=== PATIENT | female | born 1930 | race Caucasian/White ===

== ENCOUNTER 2017-01-14 13:10 | Outpatient (CLI) | payer MEDICARE, BC, OTHER ==
--- NOTE | 2017-01-14 15:13 | RAD ---
PA AND LATERAL CHEST: Indication: History of dyspnea. Comparison: 11-07-12, single view of the chest dated 04-25-16. FINDINGS: Cardiomegaly and dual-lead pacemaker is unchanged. Chronic lung changes appear similar. Compression a bnormality at L2 and T12 are similar appearing. IMPRESSION: No acute cardiopulmonary abnormality. POS: [facility]
== END 2017-01-14 13:11 | disposition home or self-care (01) ==
LOC: RAD 13:10
PROVIDERS: ATTEND Internal Medicine Pulmonary Disease
DX: R06.00 Dyspnea, unspecified (principal)
CPT/HCPCS: 71020

== ENCOUNTER 2017-05-03 13:11 | Outpatient (CLI) | payer MEDICARE, BC, OTHER ==
--- NOTE | 2017-05-03 16:06 | RAD ---
CHEST TWO VIEWS: HISTORY: Dyspnea. COMPARISON: Chest, two views, 01/14/2017. FINDINGS: The heart size is mildly enlarged. No focal air space consolidation, pneumothorax, or effusion. Chr onic elevation of the left hemidiaphragm, mild. Dual-lead pacer is similar. IMPRESSION: No acute intrathoracic abnormality. No significant change. POS: [facility]
== END 2017-05-03 13:12 | disposition home or self-care (01) ==
LOC: RAD 13:11
PROVIDERS: ATTEND Internal Medicine Pulmonary Disease
DX: R06.00 Dyspnea, unspecified (principal)
CPT/HCPCS: 71046

== ENCOUNTER 2017-06-12 19:45 | Emergency (ER) | payer MEDICARE, BC, OTHER | END 2017-06-12 20:24 | disposition home or self-care (01) | LOC: SCSER 19:45 | DX: I80.3 Phlebitis and thrombophlebitis of lower extremities, unspecified (principal); I10 Essential (primary) hypertension; E03.9 Hypothyroidism, unspecified; J44.9 Chronic obstructive pulmonary disease, unspecified; M81.0 Age-related osteoporosis without current pathological fracture; Z79.899 Other long term (current) drug therapy | CPT/HCPCS: 99283 ==

== ENCOUNTER 2017-08-27 08:36 | Outpatient (CLI) | payer MEDICARE, BC, OTHER ==
--- NOTE | 2017-08-27 15:03 | NM ---
WHOLE BODY BONE SCAN: COMPARISON: Prior chest radiograph dated 05/03/17 and left femoral radiograph dated 08/22/17. RADIOPHARMACEUTICAL: 27.3 mCi of Technetium 99m -MDP IV. FINDINGS: There is symmetrical flow to both lower extremities. Blood pool activity is within normal limits. T here is some mild degenerative activity involving the hips. There is linear activity seen within the region of T11 suspicious for fracture. There is some mild linear activity involving the inferior as pect of the L3 level which may reflect an additional compression abnormality. There is a photopenic defect overlying the left chest wall likely related to a generator pack. IMPRESSION: 1. Mild degenerative activity is seen involving the region of the left hip. 2. Linear areas of activity involving approximately the T11 vertebral level and L3 vertebral level s uspicious for possible compression abnormalities. Dedicated thoracolumbar radiographs are recommende d for additional characterization. POS: [facility]
== END 2017-08-27 08:37 | disposition home or self-care (01) ==
LOC: NM 08:36
PROVIDERS: ATTEND Internal Medicine
DX: M25.552 Pain in left hip (principal); M79.652 Pain in left thigh; R10.2 Pelvic and perineal pain; R93.7 Abnormal findings on diagnostic imaging of other parts of musculoskeletal system
CPT/HCPCS: 78315; A9503

== ENCOUNTER 2017-09-06 10:07 | Outpatient (CLI) | payer MEDICARE, BC, OTHER | END 2017-09-06 10:08 | disposition home or self-care (01) | LOC: BICRAD 10:07 | PROVIDERS: ATTEND Internal Medicine | DX: M25.552 Pain in left hip (principal); M79.652 Pain in left thigh; M54.5 Low back pain; M54.6 Pain in thoracic spine; M47.896 Other spondylosis, lumbar region | CPT/HCPCS: 72072; 72100; 72170 ==

== ENCOUNTER 2017-09-27 10:18 | Outpatient (CLI) | payer MEDICARE, BC, OTHER ==
--- NOTE | 2017-09-27 13:53 | CT ---
NONCONTRAST ENHANCED CT PELVIS: History: Pelvic fracture. Left hip pain. Technique: Axial images are obtained with coronal and sagittal reconstructions. FINDINGS: Left hip surgical hardware has been removed. No evidence of acute pelvic fracture is seen. The sacrum is unremarkable. IMPRESSION: No evidence of acute pelvic fracture seen. POS: [facility]
== END 2017-09-27 10:19 | disposition home or self-care (01) ==
LOC: SCSCT 10:18
PROVIDERS: ATTEND Internal Medicine
DX: R10.2 Pelvic and perineal pain (principal)
CPT/HCPCS: 72192

== ENCOUNTER 2018-02-08 08:15 | Emergency (ER) | payer MEDICARE, BC, OTHER ==
[2018-02-08 08:54] LABS: #Basophils 0.1 thou/uL (0.0-0.2); #Lymphocytes 0.9 thou/uL (1.20-3.40); #Monocytes 0.3 thou/uL (0.11-0.59); #Neutrophils 3.8 thou/uL (1.40-6.50); %Basophils 1.4 % (0.0-1.0); %Eosinophils 0.9 % (0.0-10.0); %Lymphocytes 17.9 % (21.0-51.0); %Monocytes 6.5 % (0.0-10.0); %Neutrophils 73.3 % (42.0-75.0); Hemoglobin 15.6 g/dL (12.0-16.0); Mean Corpuscular HGB CONC 32.1 g/dL (32.0-36.0); Mean Corpuscular Hemoglobin 31.1 pg (27.0-31.0); Mean Corpuscular Volume 96.9 fL (78.0-98.0); Mean Platelet Volume 6.5 fL (7.4-10.4); Platelet Count 202 thou/uL (130-400); RBC Distribution Width 11.9 % (11.5-14.5); Red Blood Cell (RBC) Count 5.01 mill/uL (4.20-5.40); White Blood Cell (WBC) Count 5.1 thou/uL (4.8-10.8)
[2018-02-08 09:04] LABS: Anion Gap 13 mmol/L (10-20); BUN (Urea Nitrogen) 15 mg/dL (9.8-20.1); Calc. Creatinine Clearance 0 mL/min (70-130); Calcium 9.2 mg/dL (7.8-10.44); Carbon Dioxide 21 mmol/L (23-31); Chloride 110 mmol/L (98-107); Estimated GFR-MDRD 52; Glucose 128 mg/dL (83-110); Potassium 3.8 mmol/L (3.5-5.1); Sodium 140 mmol/L (136-145)
== END 2018-02-08 09:27 | disposition home or self-care (01) ==
LOC: SCSER 08:15
DX: I10 Essential (primary) hypertension (principal)
CPT/HCPCS: 80048; 84484; 85025; 93005

== ENCOUNTER 2018-02-16 11:58 | Outpatient (CLI) | payer MEDICARE, BC, OTHER ==
--- NOTE | 2018-02-16 14:01 | RAD ---
RIGHT RIBS THREE VIEWS: INDICATIONS: Fall with injury to right chest. FINDINGS: There are rib deformities involving posterior right ribs 6, 7, 8, and 9. Findings are consistent wit h displaced fractures, age indeterminate, on this exam. No pneumothorax identified. IMPRESSION: Multiple posterior right displaced rib fractures. No significant callus formation, suggesting acute or subacute injury. POS: [facility]
--- NOTE | 2018-02-16 14:01 | RAD ---
RIGHT SHOULDER 2 VIEWS: Date: 02/16/18 HISTORY: Fall with injury to chest and shoulder. FINDINGS/IMPRESSION: There is no fracture or dislocation seen at the shoulder. AC joint is normally aligned. Right side rib fractures are noted as described on rib series. POS: [facility]
--- NOTE | 2018-02-16 14:04 | RAD ---
2 VIEW CHEST: Date: 02/16/18 INDICATION: Fall with injury to chest. COMPARISON: Chest film dated 05/03/17. FINDINGS: There are displaced fractures involving the posterior right ribs 6, 7, 8, and 9. No pneumothorax or s ignificant effusion. These fractures have occurred since the prior exam. Borderline cardiomegaly with pacemaker leads. No significant vascular congestion or edema. There is m ild wedging of the T12 vertebra. The other thoracic vertebra maintain height and alignment with mild to moderate degenerative spurring. IMPRESSION: 1. Multiple displaced posterior right side rib fractures, probably acute or subacute. 2. Anterior wedging of the T12 vertebra. Slight buckling of anterior cortex could indicate acute or subacute compression. POS: [facility]
== END 2018-02-16 11:59 | disposition home or self-care (01) ==
LOC: BICRAD 11:58
PROVIDERS: ATTEND Internal Medicine
DX: M25.511 Pain in right shoulder (principal); R07.9 Chest pain, unspecified; S22.41XA Multiple fractures of ribs, right side, initial encounter for closed fracture; W19.XXXA Unspecified fall, initial encounter
CPT/HCPCS: 71046

== ENCOUNTER 2018-04-15 13:46 | Outpatient (CLI) | payer MEDICARE, BC, OTHER ==
--- NOTE | 2018-04-15 14:55 | RAD ---
PA AND LATERAL CHEST X-RAY: 04/15/2018 HISTORY: Dyspnea. COMPARISON: 02/16/2018 FINDINGS: A dual-lead left subclavian cardiac pacemaker device remains in place. The cardiac silhouette remain s at the upper limits of normal to borderline enlarged. The pulmonary vasculature is within normal l imits. The lungs are clear. Multiple remote right-sided rib fractures are again seen. There is a s table compression fracture of a lower thoracic vertebral body with degenerative changes in the spine. Osteopenia is noted. IMPRESSION: 1. No acute cardiopulmonary process. 2. Remote right-sided rib fractures. 3. Stable height loss of wedge-shaped compression fracture of the T12 vertebral body. 4. Osteopenia. POS: [facility]
== END 2018-04-15 13:47 | disposition home or self-care (01) ==
LOC: RAD 13:46
PROVIDERS: ATTEND Internal Medicine Pulmonary Disease
DX: R06.00 Dyspnea, unspecified (principal); M85.80 Other specified disorders of bone density and structure, unspecified site; Z87.81 Personal history of (healed) traumatic fracture
CPT/HCPCS: 71046